=== PATIENT | male | born 1995 | race Caucasian/White ===

== ENCOUNTER 2019-12-21 18:07 | Emergency (ER) | payer BC, SELFPAY ==
[2019-12-21 18:08] VITALS: BP 149/81; PULSE 89; RESP 19; TEMP 36.9; O2SAT 98; BMI 16.5
--- NOTE | 2019-12-21 18:29 | HMH.EDUTC ---
[facility] [place] Disposition Clinical Impression: Upper respiratory infection Qualifiers: URI type: unspecified URI Qualified Code(s): J06.9 - Acute upper respiratory infection, unspecified Disposition: Home, Self-Care Condition on Discharge: Good Instructions: Preventing the Spread of Coronavirus Discharge Instructions Additional Instructions: Your test results should be back within 24-48 hours. Please isolate yourself as if you are positive until test results received. Prescriptions: Brompheniramine/Pseudoephed/Dm [Bromfed DM Cough Syrup 5mL] 5 ml PO Q4HP PRN 10 Days #240 ml PRN Reason: Cough Transmission Status: Pending to [facility] #[id number] Referrals: PCP,No [Primary Care Provider] - Time of Disposition: 18:34 Medical Decision Making - Sandor Inquiry Pt receiving controlled substance: No Vital Signs: 12/21/19 18:08 Temperature 98.5 F Temperature Source Oral Pulse Rate [Left Radial] 89 Respiratory Rate 19 Blood Pressure [Right Arm] 149/81 H Blood Pressure Mean [Right Arm] 103 Blood Pressure Source [Right Arm] Automatic Cuff Blood Pressure Position [Right Arm] Sitting 02 Sat by Pulse Oximetry 98 Orders (Tests/Meds): ORDERS Category Date Time Status Covid-19 Nasal PCR Sendout [facility] 12/21/19 18:25 Received [facility] [place] HPI - General Stated complaint: Sore throat, cough, wants COVID test Time Seen by Provider: 12/21/19 18:30 Mode of Arrival: Ambulatory Source of Information: Patient Limitations: No Limitations Description of Symptoms (Recalled from Triage Doc. by RN): c/o sore throat, cough with mucus, congestion, and weakness for one week HEENT Symptoms (Recalled from RN notes): Yes Resp Symptoms (Recalled from RN notes): Yes Skin Symptoms (Recalled from RN notes): No MS Symptoms (Recalled from RN notes): No Functional Status (Recalled from RN notes): wnl - History of Present Illness Provider Complaint: Sore throat, cough, weakness X 1 week. Denies ear pain. Denies fever. Has had some body soreness. Can't breathe thru nose, but no loss of smell or taste. No vomiting or diarrhea. No known exposure to COVID19. Onset (ago): week(s) (1) Relieving factors: none Exacerbating factors: none Associated symptoms: denies other symptoms Treatments prior to arrival: none - Related Data Previous Rx's Medication Instructions Recorded Brompheniramine/Pseudoephed/Dm 5 ml PO Q4HP PRN 10 Days #240 ml 12/21/19 [Bromfed DM Cough Syrup 5mL] Allergies Allergy/AdvReac Type Severity Reaction Status Date / Time No Known Allergies Allergy Verified 12/21/19 18:28 - Worker's Comp Is this a Worker's Comp case?: No H History - Hepatitis A Screen Drug use history?: No High risk sexual behaviors?: No History of sexually transmitted infection?: No Currently employed?: No Childcare worker?: No Do you have indoor plumbing?: Yes Do you have electricity?: Yes Attestation statement:: This patient has been screened for Hepatitis A risk factors. I have reviewed the patient's past medical history: Yes ROS Obtained: Yes All systems reviewed & no additional complaints - Constitutional Constitutional: Reports body ache - ENT Ears, Nose, Mouth, and Throat: Reports nasal congestion, Reports sore throat Physical Exam - General General appearance: alert, in no apparent distress - Head Head exam: atraumatic, normocephalic, normal inspection - Eye Eye exam: Present: normal appearance, PERRL, EOMI - ENT ENT exam: Present: normal exam, normal oropharynx, mucous membranes moist, TM's normal bilaterally, normal external ear exam - Neck Neck exam: Present: normal inspection, full ROM, trachea midline. Absent: meningismus, lymphadenopathy - Chest Chest inspection: Present: normal inspection, symmetric chest wall rise. Absent: tenderness - Respiratory Respiratory exam: Present: normal lung sounds bilaterally. Absent: respiratory distress - Cardiovascular Cardiovascular ex
[2019-12-21 19:05] VITALS: BP 149/81; PULSE 80; RESP 19; TEMP 36.9; O2SAT 98
[2019-12-23 08:27] LABS: Covid-19 Nasal PCR Sendout UK Not Detected
== END 2019-12-21 19:06 | disposition home or self-care (01) ==
PROVIDERS: Emergency Provider Physician Assistant
DX: Z20.828 Contact with and (suspected) exposure to other viral communicable diseases (principal); J06.9 Acute upper respiratory infection, unspecified
CPT/HCPCS: 99201; U0003